=== PATIENT | male | born 1945 | race Caucasian/White ===

== ENCOUNTER 2018-03-05 20:33 | Inpatient (IN) | payer OTHER ==
[2018-03-05] MEDS ORDERED: NA CHLORIDE 0.9% 1,000 ML ONE (21:47)
[2018-03-05 22:05] LABS: Absolute Lymphocytes (CBC) 1.3 K/uL (0.7-4.9); Absolute Monocytes 0.7 K/uL (0.1-1.3); Absolute Neutrophil 4.8 K/uL (1.8-8.0); Basophils % 0.4 % (0-1.3); Eosinophils % 3.8 % (0-4.4); Hematocrit 28.8 % (39.6-49.0); Lymphocytes % 17.8 % (15.3-44.8); MCH 34.2 pg (27.0-35.0); MCV 96.5 fL (80-100); MPV 7.2 fL (7.6-11.3); Monocytes % 10.1 % (3.3-12.3); RBC Red Blood Cell Count 2.98 M/uL (4.33-5.43)
[2018-03-05 22:27] LABS: ALT/SGPT 25 U/L (12-78); AST/SGOT 16 U/L (15-37); Albumin 3.4 g/dL (3.4-5.0); Alkaline Phosphatase 78 U/L (45-117); BUN Blood Urea Nitrogen 49 mg/dL (7-18); Bicarbonate 25 mmol/L (21-32); Bilirubin Direct < 0.1 mg/dL (0-0.2); Bilirubin Total 0.3 mg/dL (0.2-1.0); Glucose Level 141 mg/dL (74-106); Lipase 167 U/L (73-393); NT PRO-BNP 445 pg/mL (<125); Potassium 4.1 mmol/L (3.5-5.1); Protein, Total 7.5 g/dL (6.4-8.2); Sodium Level 135 mmol/L (136-145)
[2018-03-05 22:29] LABS: Urine Blood NEGATIVE (NEG); Urine Glucose NEGATIVE (NEG); Urine Protein TRACE (NEG); Urine pH 5.5 (5.0-7.0)
[2018-03-05 23:00] LABS: Urine Bacteria <20 /HPF (NONE SEEN); Urine Culture Reflex Order NOT NEEDED; Urine RBC NONE SEEN /HPF (NONE SEEN)
--- NOTE | 2018-03-06 00:19 | ER ---
Nurse's Notes [facility] Name: Juan Carter Age: 72 yrs Sex: Male : 1945 Arrival Date: 03/05/2018 Time: 20:35 Bed 8 Private MD: Parish Bowling C Diagnosis: Diverticulitis of intestine, part unspecified, without perforation or abscess without bleeding Presentation: 03/05 20:41 Presenting complaint: Patient states: left lower abd pain. 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 ak1 pt stated he has had diverticulitis before and believes this is a "flare up". Transition of care: patient was not received from another setting of care. Onset of symptoms is unknown. Risk Assessment: Do you want to hurt yourself or someone else? Patient reports no desire to harm self or others. Initial Sepsis Screen: Does the patient meet any 2 criteria? No. Patient's initial sepsis screen is negative. Does the patient have a suspected source of infection? No. Patient's initial sepsis screen is negative. Care prior to arrival: None. 20:41 Method Of Arrival: Ambulatory ak1 20:41 Acuity: MARINA 3 ak1 Historical: - Allergies: 20:42 SHELLFISH; ak1 - PMHx: 03/06 01:16 Diverticulitis; lp1 01:22 Hypertension; Prostate Cancer; lp1 - PSHx: 01:22 R kidney removal; Colon resection; lp1 - Immunization history:: Adult Immunizations unknown. - Social history:: Smoking status: Patient/guardian denies using tobacco. - Ebola Screening: : No symptoms or risks identified at this time. Screenin/26 20:44 Abuse screen: Denies threats or abuse. Denies injuries from another. Nutritional ak1 screening: No deficits noted. Tuberculosis screening: No symptoms or risk factors identified. Fall Risk None identified. Assessment: 20:45 General: Appears in no apparent distress. Behavior is calm, cooperative, appropriate lp1 for age. Pain: Denies pain. Complains of pain in left lower quadrant. Neuro: Level of Consciousness is awake, alert, obeys commands, Oriented to person, place, time, situation. Cardiovascular: Patient's skin is warm and dry. Respiratory: Respiratory effort is even, unlabored, Breath sounds are clear bilaterally. GI: Abdomen is non-distended, Bowel sounds present X 4 quads. Abd is soft and non tender X 4 quads. : No signs and/or symptoms were reported regarding the genitourinary system. EENT: No signs and/or symptoms were reported regarding the EENT system. Derm: Skin is pink, warm \\T\\ dry. Musculoskeletal: Circulation, motion, and sensation intact. 21:01 General: Appears in no apparent distress. comfortable, Behavior is calm, cooperative, ao appropriate for age. Pain: Complains of pain in abdomen. Neuro: Level of Consciousness is awake, alert, obeys commands, Oriented to person, place, time, situation, Appropriate for age Moves all extremities. Speech is normal, Facial symmetry appears normal. Cardiovascular: Capillary refill < 3 seconds Patient's skin is warm and dry. Respiratory: Airway is patent Respiratory effort is even, unlabored, Respiratory pattern is regular, symmetrical. GI: Abdomen is obese, Bowel sounds present X 4 quads. Abd is soft and non tender X 4 quads. : No signs and/or symptoms were reported regarding the genitourinary system. EENT: No signs and/or symptoms were reported regarding the EENT system. Derm: Skin is intact, Skin is pink, warm \\T\\ dry. Musculoskeletal: Range of motion:. 21:45 Reassessment: Patient appears in no apparent distress at this time. Patient and/or lp1 family updated on plan of care and expected duration. Pain level reassessed. Patient is alert, oriented x 3, equal unlabored respirations, skin warm/dry/pink. 22:45 Reassessment: Patient is alert, oriented x 3, equal unlabored respirations, skin lp1 warm/dry/pink. Patient denies pain at this time. 03/06 00:00 Reassessment: Patient appears in no apparent distress at this time. No changes from lp1 previously documented assessment. 01:01 Reassessment: Patient appears in no apparent distress at this time. Patient is alert, lp1 oriented x 3, equal unlabored respirations, skin warm/dry/pink. Patient aware of pending admission Patient denies pain at this time. 01:01 Reassessment: Attempted to call report at this time, nurse will call back. 1 Vital Signs: 03/05 20:42 BP 135 / 72; Pulse 71; Resp 18; Temp 98.1; Pulse Ox 98% on R/A; Weight 104.33 kg (R); ak1 Height 6 ft. 2 in. (187.96 cm) (R); Pain 4/10; 21:30 BP 144 / 65; Pulse 61; Resp 18; Pulse Ox 97% on R/A; lp1 22:30 BP 157 / 69; Pulse 59; Resp 18; Pulse Ox 98% on R/A; lp1 23:30 BP 158 / 80; Pulse 55; Resp 18; Pulse Ox 98% on R/A; lp1 03/06 00:30 BP 137 / 66; Pulse 58; Resp 18; Temp 99.1(O); Pulse Ox 100% on R/A; Pain 0/10; lp1 01:22 BP 140 / 64; Pulse 59; Resp 18; Pulse Ox 100% on R/A; lp1 03/05 20:42 Body Mass Index 29.53 (104.33 kg, 187.96 cm) ak1 ED Course: 03/05 20:35 Patient arrived in ED. es 20:36 Parish Bowling MD is Private Physician. es 20:42 Triage completed. ak1 20:42 Arm band placed on Patient placed in an exam room, on a stretcher, Patient notified of ak1 wait time. 20:44 Patient has correct armband on for positive identification. ak1 20:46 Phillip Hurtado RN is Primary Nurse. ao 20:47 Rosalia Negrete FNP-C is PHCP. snw 20:48 Walt Watt MD is Attending Physician. snw 21:34 Oral contrast reported to be complete. nj 21:53 Ibis Melo, SEGUN is Primary Nurse. lp1 21:56 Inserted saline lock: 20 gauge in right antecubital area, using aseptic technique. lp1 Blood collected. By Phillip Hurtado RN. 03/06 00:18 Parish Bowling MD is Hospitalizing Provider. snw 00:23 CT completed. Patient tolerated procedure well. Patient moved to CT via stretcher. Patient moved back from CT. 00:58 No provider procedures requiring assistance completed. Patient admitted, IV remains in lp1 place. Administered Medications: 03/05 21:56 Drug: NS 0.9% 1000 ml Route: IV; Rate: 75 ml/hr; Site: right antecubital; lp1 03/06 01:01 Follow up: IV Status: Infusion continued upon admission lp1 00:53 Drug: Cipro 200 mg Volume: 100 ml; Route: IVPB; Infused Over: 60 mins; Site: right lp1 antecubital; 01:02 Follow up: IV Status: Infusion continued upon admission lp1 Outcome: 00:18 Decision to Hospitalize by Provider. snw 00:59 Condition: stable lp1 00:59 Instructed on the need for admit. 01:23 Admitted to Tele via wheelchair, room 429, with chart, Report called to SEGUN Casey lp1 01:26 Patient left the ED. lp1 Signatures: Rosalia Negrete, WATER QUALITY MANAGER-C WATER QUALITY MANAGER-Csnw Sirisha Arroyo Ervin eh Pena, Laura, RN RN lp1 Linn Fong RN RN ak1 Phillip Hurtado, RN RN [place] Corrections: (The following items were deleted from the chart) 01:22 01:16 PMHx: Only one kidney; lp1 lp1
--- NOTE | 2018-03-06 00:19 | EDPHYS ---
Physician Documentation [facility] Name: Juan Carter Age: 72 yrs Sex: Male : 1945 Arrival Date: 03/05/2018 Time: 20:35 Bed 8 Private MD: Parish Bowling C ED Physician Walt Watt HPI: 03/05 23:22 This 72 yrs old Male presents to ER via Ambulatory with complaints of snw Abdominal Pain, Fever. 23:22 The patient presents with abdominal pain in the left lower quadrant. Onset: The snw symptoms/episode began/occurred gradually, 3 day(s) ago, and became worse and became persistent. The symptoms do not radiate. Associated signs and symptoms: Pertinent positives: fever, Pertinent negatives: blood in stools, hematuria, vomiting blood. The symptoms are described as crampy. Modifying factors: The symptoms are alleviated by bowel movements. Severity of pain: At its worst the pain was moderate. The patient has experienced similar episodes in the past. The patient has not recently seen a physician. 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 Pt then had prostate cancer and was treated with radiation. Pt had a segment of colon resected at age 50, second to diverticulitis. Pt saw urology and was rx'd meloxicam and Cipro three weeks ago. Pt states after taking the meloxicam he began swelling in bilateral legs/feet. Historical: - Allergies: 20:42 SHELLFISH; ak1 - PMHx: 03/06 01:16 Diverticulitis; lp1 01:22 Hypertension; Prostate Cancer; lp1 - PSHx: 01:22 R kidney removal; Colon resection; lp1 - Immunization history:: Adult Immunizations unknown. - Social history:: Smoking status: Patient/guardian denies using tobacco. - Ebola Screening: : No symptoms or risks identified at this time. ROS: 03/05 23:17 Eyes: Negative for injury, pain, redness, and discharge, ENT: Negative for injury, snw pain, and discharge, Neck: Negative for injury, pain, and swelling, Cardiovascular: Negative for chest pain, palpitations, and edema, Respiratory: Negative for shortness of breath, cough, wheezing, and pleuritic chest pain, Abdomen/GI: Negative for nausea, vomiting, diarrhea, and constipation, + left lower quad abdominal tenderness. Pt states it was initially crampy in nature. Pt massages the area and then is able to have a bm and the pain subsides a little for a while Back: Negative for injury and pain, : Negative for injury, bleeding, discharge, and swelling, MS/Extremity: Negative for injury and deformity, Skin: Negative for injury, rash, and discoloration, Neuro: Negative for headache, weakness, numbness, tingling, and seizure. Constitutional: Positive for fever, to 100.9. Exam: 23:17 Head/Face: Normocephalic, atraumatic. Eyes: Pupils equal round and reactive to light, snw extra-ocular motions intact. Lids and lashes normal. Conjunctiva and sclera are non-icteric and not injected. Cornea within normal limits. Periorbital areas with no swelling, redness, or edema. ENT: Nares patent. No nasal discharge, no septal abnormalities noted. Tympanic membranes are normal and external auditory canals are clear. Oropharynx with no redness, swelling, or masses, exudates, or evidence of obstruction, uvula midline. Mucous membranes moist. Neck: Trachea midline, no thyromegaly or masses palpated, and no cervical lymphadenopathy. Supple, full range of motion without nuchal rigidity, or vertebral point tenderness. No Meningismus. Chest/axilla: Normal chest wall appearance and motion. Nontender with no deformity. No lesions are appreciated. Cardiovascular: Regular rate and rhythm with a normal S1 and S2. No gallops, murmurs, or rubs. Normal PMI, no JVD. No pulse deficits. Respiratory: Lungs have equal breath sounds bilaterally, clear to auscultation and percussion. No rales, rhonchi or wheezes noted. No increased work of breathing, no retractions or nasal flaring. 23:17 Back: No spinal tenderness. No costovertebral tenderness. Full range of motion. Skin: Warm, dry with normal turgor. Normal color with no rashes, no lesions, and no evidence of cellulitis. MS/ Extremity: Pulses equal, no cyanosis. Neurovascular intact. Full, normal range of motion. Neuro: Awake and alert, GCS 15, oriented to person, place, time, and situation. Cranial nerves II-XII grossly intact. Motor strength 5/5 in all extremities. Sensory grossly intact. Cerebellar exam normal. Normal gait. 23:17 Constitutional: The patient appears alert, awake, uncomfortable. 23:17 Abdomen/GI: Inspection: scar(s), are noted in the epigastric area and umbilical area, Bowel sounds: diminished, Palpation: mild abdominal tenderness, moderate abdominal tenderness, in the left lower quadrant, mass, is not appreciated, rebound tenderness, is not appreciated. Vital Signs: 20:42 BP 135 / 72; Pulse 71; Resp 18; Temp 98.1; Pulse Ox 98% on R/A; Weight 104.33 kg (R); ak1 Height 6 ft. 2 in. (187.96 cm) (R); Pain 4/10; 21:30 BP 144 / 65; Pulse 61; Resp 18; Pulse Ox 97% on R/A; lp1 22:30 BP 157 / 69; Pulse 59; Resp 18; Pulse Ox 98% on R/A; lp1 23:30 BP 158 / 80; Pulse 55; Resp 18; Pulse Ox 98% on R/A; lp1 03/06 00:30 BP 137 / 66; Pulse 58; Resp 18; Temp 99.1(O); Pulse Ox 100% on R/A; Pain 0/10; lp1 01:22 BP 140 / 64; Pulse 59; Resp 18; Pulse Ox 100% on R/A; lp1 03/05 20:42 Body Mass Index 29.53 (104.33 kg, 187.96 cm) ak1 MDM: 03/05 21:08 Patient medically screened. snw 03/06 00:18 Data reviewed: vital signs, nurses notes. Data interpreted: Pulse oximetry: on room air snw is 98 %. Interpretation: normal. Counseling: I had a detailed discussion with the patient and/or guardian regarding: the historical points, exam findings, and any diagnostic results supporting the discharge/admit diagnosis, the presence of at least one elevated blood pressure reading (>120/80) during this emergency department visit, lab results, radiology results, the need for outpatient follow up, to return to the emergency department if symptoms worsen or persist or if there are any questions or concerns that arise at home. 03/05 21:25 Order name: Basic Metabolic Panel; Complete Time: 22:30 snw 03/05 21:25 Order name: CBC with Diff; Complete Time: 22:08 snw 03/05 21:25 Order name: Hepatic Function; Complete Time: 22:30 snw 03/05 21:25 Order name: Lipase; Complete Time: 22:30 snw 03/05 21:25 Order name: Urine Microscopic Only; Complete Time: 23:00 snw 03/05 21:25 Order name: Blood Culture Adult (2) snw 03/05 21:25 Order name: IV Saline Lock; Complete Time: 21:56 snw 03/05 21:25 Order name: Labs collected and sent; Complete Time: 21:56 snw 03/05 21:25 Order name: Urine Dipstick-Ancillary (obtain specimen); Complete Time: 22:05 snw 03/05 21:25 Order name: BNP; Complete Time: 22:30 snw 03/05 21:25 Order name: CT Abd/Pelvis - Without Cont snw 03/05 22:06 Order name: Urine Dipstick--Ancillary (enter results); Complete Time: 22:30 ms 03/05 21:26 Order name: NPO; Complete Time: 21:43 snw Administered Medications: 03/05 21:56 Drug: NS 0.9% 1000 ml Route: IV; Rate: 75 ml/hr; Site: right antecubital; lp1 03/06 01:01 Follow up: IV Status: Infusion continued upon admission lp1 00:53 Drug: Cipro 200 mg Volume: 100 ml; Route: IVPB; Infused Over: 60 mins; Site: right lp1 antecubital; 01:02 Follow up: IV Status: Infusion continued upon admission lp1 Disposition: 06:48 Co-signature as Attending Physician, Walt Watt MD. rn Disposition: 03/06/18 00:18 Hospitalization ordered by Parish Bowling for Inpatient Admission. Preliminary diagnosis is Diverticulitis of intestine, part unspecified, without perforation or abscess without bleeding. - Bed requested for Telemetry/MedSurg (Inpatient). - Status is Inpatient Admission. lp1 - Condition is Stable. - Problem is an acute exacerbation. - Symptoms are unchanged. UTI on Admission? No Signatures: Dispatcher [employer] EDMS Rosalia Negrete, CONVEYOR SYSTEM DISPATCHER-C CONVEYOR SYSTEM DISPATCHER-Csnw Estephanie Pisano, RN Walt Jasmine MD MD rn Pena, Laura, RN RN lp1 Krenek, Linn, RN RN ak1 Corrections: (The following items were deleted from the chart) 00:29 00:18 Hospitalization Ordered by A Tawnya URBINA for Inpatient Admission. Preliminary bb diagnosis is Diverticulitis of intestine, part unspecified, without perforation or abscess without bleeding. Bed requested for Telemetry/MedSurg (Inpatient). Status is Inpatient Admission. Condition is Stable. Problem is an acute exacerbation. Symptoms are unchanged. UTI on Admission? No. snw 01: 01:16 PMHx: Only one kidney; lp1 lp1 01:26 00:29 03/06/2018 00:18 Hospitalization Ordered by A Tawnya URBINA for Inpatient Admission. lp1 Preliminary diagnosis is Diverticulitis of intestine, part unspecified, without perforation or abscess without bleeding. Bed requested for Telemetry/MedSurg (Inpatient). Status is Inpatient Admission. Condition is Stable. Problem is an acute exacerbation. Symptoms are unchanged. UTI on Admission? No. bb
[2018-03-06] MEDS ORDERED: Ciprofloxacin 200mg IV 200 MG/100 ML IV.SOLN. IV ONE (00:52)
[2018-03-06] MEDS ORDERED: ACETAMINOPHEN 500 MG TAB PO PRN (01:51)
[2018-03-06] MEDS: METRONIDAZOLE 250mg IVPB 250 MG/50 ML BAG IV SCH ×3 (01:51→16:05)
[2018-03-06] MEDS ORDERED: PROMETHAZINE 25 MG/ML VIAL IV PRN (01:51)
[2018-03-06] MEDS ORDERED: Morphine 2 MG/2 ML SYR IV PRN (01:51)
[2018-03-06] MEDS: NA CHLORIDE 0.9% 1,000 ML IV SCH ×2 (01:51→11:29)
[2018-03-06 05:37] LABS: Absolute Lymphocytes (CBC) 1.5 K/uL (0.7-4.9); Absolute Monocytes 0.6 K/uL (0.1-1.3); Absolute Neutrophil 3.5 K/uL (1.8-8.0); Basophils % 0.5 % (0-1.3); Eosinophils % 5.8 % (0-4.4); Hematocrit 26.3 % (39.6-49.0); Lymphocytes % 24.4 % (15.3-44.8); MCH 32.6 pg (27.0-35.0); MCV 96.8 fL (80-100); Monocytes % 10.7 % (3.3-12.3); RBC Red Blood Cell Count 2.72 M/uL (4.33-5.43)
[2018-03-06 06:03] LABS: Albumin 2.9 g/dL (3.4-5.0); Bilirubin Direct 0.1 mg/dL (0-0.2); Bilirubin Total 0.4 mg/dL (0.2-1.0); Potassium 4.3 mmol/L (3.5-5.1); Protein, Total 6.6 g/dL (6.4-8.2)
[2018-03-06] MEDS ORDERED: MORPHINE 2 MG/ML SYR IV PRN (07:22)
[2018-03-06] MEDS ORDERED: DOXAZOSIN 2 MG TAB ONE (07:58)
[2018-03-06] MEDS ORDERED: PNEUMOCOCCAL VACCINE 0.5 ML IMVAC ONE (08:00)
--- NOTE | 2018-03-06 08:12 | RAD REPORT ---
EXAM DESCRIPTION: CT - Abdomen Pelvis Wo Contrast - 03/06/2018 6:05 am CLINICAL HISTORY: Abdominal pain left lower quadrant pain. Surgery 6+ months however section. Renal cell carcinoma COMPARISON: 2009 TECHNIQUE: Computed axial tomography of the abdomen and pelvis was obtained. IV was not requested. O ral contrast was given. Coronal reconstructions performed. A preliminary report was generated by [employer] and reviewed prior to this dictation All CT scans are performed using dose optimization technique as appropriate and may include automated exposure control or mA/KV adjustment according to patient size. FINDINGS: The evaluation of solid organs and vessels is limited secondary to the lack of contrast a dministration. Liver has a mildly diminished attenuation consistent with fatty infiltration Spleen, pancreas, and adrenals appear grossly normal. Right nephrectomy has been performed. Several l ow-density masses within the left kidney are without significant change probably representing cysts. Bilateral inguinal hernias contain fat. Internal radiation beams surround the prostate. Diverticula stem from the colon. Mild to moderate stranding is present adjacent to the distal descend ing colon. An abscess is not seen. Free air is not noted. Spondylosis involves lumbar spine resulting in spinal stenosis. IMPRESSION: Mild to moderate diverticulitis involving the distal descending colon
[2018-03-06] MEDS: DOXAZOSIN 4 MG TAB PO SCH (08:21)
[2018-03-06] MEDS: HYDRALAZINE HCL 10 MG TABLET PO SCH (08:22)
[2018-03-06] MEDS: CARVEDILOL 6.25 MG TAB PO SCH (08:22)
[2018-03-06] MEDS: HEPARIN 5000 UNIT/ML 1 ML VIAL SQ SCH ×2 (08:23→20:26)
[2018-03-06] MEDS: Ciprofloxacin 200mg IV 200 MG/100 ML IV.SOLN. IV SCH (12:02)
[2018-03-06] MEDS ORDERED: ALLOPURINOL 100 MG TAB PO SCH (21:00)
[2018-03-06] MEDS ORDERED: VITAMIN D 5,000 UNIT CAP PO SCH (21:00)
[2018-03-06] MEDS ORDERED: ASPIRIN EC 81 MG TAB PO SCH (21:00)
[2018-03-07] MEDS: NA CHLORIDE 0.9% 1,000 ML IV SCH ×2 (00:04→07:51)
[2018-03-07] MEDS: METRONIDAZOLE 250mg IVPB 250 MG/50 ML BAG IV SCH ×2 (00:05→09:00)
[2018-03-07] MEDS: Ciprofloxacin 200mg IV 200 MG/100 ML IV.SOLN. IV SCH (00:08)
--- NOTE | 2018-03-07 01:50 | HP ---
Date of Admission: 03/06/2018 Chief Complaint: Abdominal pain and fever. History Of Present Illness: This is a 72-year-old male patient with history of diverticulosis and prior history of diverticulitis several years ago with multiple other comorbidities came into emergency room yesterday late evening with abdominal pain that started 3-4 days ago and has progressively gotten worse and started to have fever. Pain gets worse with bending, walking, etc. Denies any constipation, diarrhea. No bleeding. No nausea. No vomiting. No relieving factor. He contacted me late yesterday evening with this symptom. He was advised to come to the emergency room. Details were discussed with ER physician and evaluation was done in ER and the patient was admitted to the hospital with acute diverticulitis. This morning when I saw him, he had no new complaints except as mentioned above. Allergies: TO SHELLFISH. Medications: List reviewed. Review of Systems: GI: As mentioned above. Constitutional: As mentioned above. All other systems reviewed and negative. Family History: Not pertinent. Social History: Negative for smoking or alcohol use. Past Surgical History: Significant for surgery for kidney cancer. Past Medical History: Significant for hypertension; hyperlipidemia; chronic kidney disease, stage 4; kidney cancer; gout; diverticulosis; prostate cancer; anemia due to chronic kidney disease; impaired fasting glucose. Physical Examination: Vital Signs: Height 6 feet. Weight 234 pounds. Temperature 97.6, pulse 55, respiratory rate 17, blood pressure 131/62, oxygen saturation 94%. General: Awake, alert, oriented, not in distress. HEENT: Head atraumatic, normocephalic. Conjunctivae nonerythematous. Sclerae white. Mouth, no thrush or edema noted. Ears/Nose, no mass, lesion, discharge noted. Neck: Supple. No JVD, lymph nodes, bruit, thyromegaly noted. Lungs: Bilateral good equal air entry. Clear to auscultation. No rhonchi. No rales. Heart: Normal heart sounds, no murmur or gallop. Abdomen: Soft. No distention, guarding, or rigidity. No rebound tenderness. No hepatosplenomegaly. No bruit. Bowel sounds normoactive. Presence of moderate tenderness in left lower quadrant. Extremities: No leg edema. No calf tenderness. Skin: No rash, ulcer, cellulitis. Lymphatics: No lymph node enlargement in neck, supraclavicular, infraclavicular region. Neuro: No focal neurological deficit. Chest: Unremarkable. External Genitalia: Deferred. Rectal: Deferred. Laboratory Data: Yesterday white count 7.1, hemoglobin 10.2, platelets 169. This morning, white count 6, hemoglobin 8.8, platelets 165. Sodium yesterday 135, potassium 4.1, chloride 103, bicarb 25, BUN 49, creatinine 2.80, glucose 141. Liver function tests unremarkable. Lipase 167. This morning, sodium 138 , potassium 4.3, chloride 104, bicarb 25, BUN 47, creatinine 2.40, glucose 105. Liver function tests unremarkable. Lipase 120. Urinalysis unremarkable, except trace protein. CAT scan of abdomen and pelvis without contrast shows [id number] diverticulitis involving distal descending colon. An abscess is not seen. No free air under diaphragm. Impression: 1. Acute diverticulitis without obstruction, without perforation. 2. Hypertension. 3. Kidney cancer. 4. Chronic kidney disease, stage 4. 5. Anemia due to chronic kidney disease. 6. Gout. Plan: We will admit the patient to hospital for further evaluation and management of this problem. The patient is appropriate for inpatient and is expected to spend 2 midnights in the hospital. We will go ahead and start him on clear liquid diet today. DVT prophylaxis will be given using heparin. Home medications will be continued per order. We will continue IV fluid, IV antibiotics per order. I will see him tomorrow for followup. The patient says that he has appointment to get repeat colonoscopy in May of this year with Dr. Ryan and I have advised him to keep that appointment. I will see him tomorrow for followup. ALAINA/ADARSH Voice ID: [id number] MTDAnant
[2018-03-07] MEDS: DOXAZOSIN 4 MG TAB PO SCH (09:00)
[2018-03-07] MEDS: CARVEDILOL 6.25 MG TAB PO SCH (09:00)
[2018-03-07] MEDS: HEPARIN 5000 UNIT/ML 1 ML VIAL SQ SCH (09:00)
[2018-03-07] MEDS: HYDRALAZINE HCL 10 MG TABLET PO SCH (09:26)
--- NOTE | 2018-03-08 02:09 | DS ---
Date of Discharge: 03/07/2018 Disposition: Discharged to go home. Physical Examination: HEENT: Unremarkable. Lungs: Clear to auscultation. Heart: Sounds normal. Abdomen: Soft, bowel sounds normal. No guarding, rigidity, tenderness, or distention. Extremities: No leg edema. Laboratory Data: Labs done during this hospitalization; white count upon admission 7.1, hemoglobin 10.2, platelets 169. Yesterday, white count 6, hemoglobin 8.8, platelets 165. Upon admission, sodium 135, potassium 4.1, chloride 103, bicarb 25, BUN 49, creatinine 2.80, glucose 141, lipase 167. Yesterday BUN 47, creatinine 2.40. Hospital Course: A 72-year-old male patient, admitted to the hospital with abdominal pain, and fever. Please see dictated H and P for more information. The patient came into emergency room with 3-4 days history of abdominal pain and fever. Abdominal pain was in the left lower quadrant and over period of time it got worse and then associated with fever, so the patient came into the ER. After he was evaluated in the ER, he was admitted to the hospital with acute diverticulitis. There was no evidence of any obstruction or perforation. The patient was admitted to the hospital. He was given IV fluid, IV antibiotics and yesterday he was started on clear liquid diet. As of this morning, we started him on soft diet. He tolerated a clear liquid diet very well, started ambulating well without any problem, and he has informed me that he actually has colonoscopy scheduled for May of this year with Dr. Ryan and I have advised him to keep that appointment. The patient's other medical problems remained stable and he was discharged to go home in stable condition with following discharge medications and instructions. 1. Continue all prior home medications. 2. Cipro 250 mg p.o. twice a day for 10 days and metronidazole 500 mg p.o. 3 times a day for 10 days. 3. Follow up at my office in 2 weeks. Final Diagnoses: 1. Acute diverticulitis without any obstruction or perforation. 2. Chronic kidney disease, stage 4. 3. Anemia due to chronic kidney disease. 4. Hypertension. 5. Gout. 6. Kidney cancer. 7. Hyperlipidemia. 8. Impaired fasting glucose. 9. Prostate cancer. ALAINA/MODL Voice ID: [id number] Report ID: [id number] MTDD
== END 2018-03-07 09:47 | disposition home or self-care (01) | DRG 392 ==
LOC: ER 20:33 → ERHOLD 22:34 → 4TH 03-06 01:20
PROVIDERS: ADMIT Internal Medicine; ATTEND Internal Medicine
DX: K57.92 Diverticulitis of intestine, part unspecified, without perforation or abscess without bleeding (principal); N18.4 Chronic kidney disease, stage 4 (severe); I12.9 Hypertensive chronic kidney disease with stage 1 through stage 4 chronic kidney disease, or unspecified chronic kidney disease; D63.1 Anemia in chronic kidney disease; M1A.9XX0 Chronic gout, unspecified, without tophus (tophi); E78.5 Hyperlipidemia, unspecified; Z91.013 Allergy to seafood; Z85.46 Personal history of malignant neoplasm of prostate; Z85.528 Personal history of other malignant neoplasm of kidney
CPT/HCPCS: 36415; 74176; 80048; 80076; 81003; 81015; 83690; 83880; 85025; 87040; 96361; 96374; 99285; J0744; J1644; J2270; J7030

== ENCOUNTER 2025-07-03 12:38 | Observation (INO) | payer OTHER ==
[2025-07-03 13:41] LABS: Absolute Lymphocytes (CBC) 1.1 K/uL (0.7-4.9); Hematocrit 25.8 % (39.6-49.0); Hemoglobin 8.8 g/dL (13.6-17.9); MCH 34.5 pg (27.0-35.0); MCHC 34.1 g/dL (32.0-36.0); MCV 101.2 fL (80-100); MPV 7.0 fL (7.6-11.3); Nucleated RBC Absolute Count 0.0 (0-0); Nucleated Red Blood Cells % 0.1 % (0-0); RBC Red Blood Cell Count 2.55 M/uL (4.33-5.43); White Blood Count 4.30 thou/uL (4.3-10.9)
--- NOTE | 2025-07-03 13:53 | RAD REPORT ---
EXAM: Chest Single View HISTORY: 79 years Male CHEST PAIN COMPARISON: No prior exams FINDINGS: LUNGS/PLEURA: The lungs are clear. No pleural effusions or pneumothorax. No pulmonary edema. CARDIAC/MEDIASTINUM: The cardiac silhouette is within normal limits. UPPER ABDOMEN: No significant abnormality. BONES: No acute abnormality. LINES/TUBES/OTHER: N/A IMPRESSION: No evidence of acute cardiopulmonary disease.
[2025-07-03 14:00] LABS: ALT/SGPT 21 U/L (16-61); AST/SGOT 11 U/L (15-37); Albumin 3.3 g/dL (3.4-5.0); Albumin/Globulin Ratio 0.9 (1.1-1.8); Alkaline Phosphatase 79 U/L (45-117); Anion Gap 10.7 mEq/L (5.0-15.0); BUN Blood Urea Nitrogen 47 mg/dL (7-18); Globulin 3.5 g/dL (2.3-3.5); Glucose Level 101 mg/dL (74-106); Magnesium 2.4 mg/dL (1.6-2.4); NT PRO-BNP 1319 pg/mL (<450); Potassium 4.7 mEq/L (3.5-5.1); Troponin High Sensitivity 12.7 pg/mL (<58.9)
[2025-07-03 14:02] LABS: Bilirubin Indirect, Calculated 0.0 mg/dL (0.2-0.8)
[2025-07-03 14:44] LABS: PT Prothrombin Time 12.4 SECONDS (10-13.0); Protime INR 1.1
[2025-07-03] MEDS ORDERED: FUROSEMIDE 40 MG/4 ML VIAL ONE (15:40)
--- NOTE | 2025-07-03 15:44 | ER ---
Nurse's Notes [facility] Name: Juan Carter Age: 79 yrs Sex: Male : 1945 Arrival Date: 07/03/2025 Time: 12:38 Bed 14 Private MD: Diagnosis: New onset CHF, dyspnea, renal insufficiency Presentation: 07/03 12:47 Chief complaint: Patient states: for the past 2 weeks patient has had episodes of chest me1 heaviness that radiates to left arm, 5/10, with SOB. 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 Reports intermittent lightheadedness. Feels anxious. HX of kidney cancer with a nephrectomy and his kidney function has been poor lately. Coronavirus screen: At this time, the client does not indicate any symptoms associated with coronavirus-19. Ebola Screen: No symptoms or risks identified at this time. Initial Sepsis Screen: Does the patient meet any 2 criteria? No. Patient's initial sepsis screen is negative. Does the patient have a suspected source of infection? No. Patient's initial sepsis screen is negative. Risk Assessment: Do you want to hurt yourself or someone else? Patient reports no desire to harm self or others. Onset of symptoms is unknown. 12:47 Method Of Arrival: Ambulatory me1 12:47 Acuity: MARINA 2 me1 Historical: - Allergies: 12:52 SHELLFISH; me1 - PMHx: 12:52 Diverticulitis; Hypertension; Prostate Cancer; kidney cancer (Unknown); me1 - PSHx: 12:52 nephrectomy (Unknown); me1 - Immunization history:: Adult Immunizations up to date. - Infectious Disease History:: Denies. - Social history:: Smoking status: Patient denies any tobacco usage or history of. Screenin:45 [place] ED Fall Risk Assessment (Adult) History of falling in the last 3 months, ar8 including since admission No falls in past 3 months (0 pts) Confusion or Disorientation No (0 pts) Intoxicated or Sedated No (0 pts) Impaired Gait No (0 pts) Mobility Assist Device Used No (0 pt) Altered Elimination No (0 pt) Score/Fall Risk Level 0 - 2 = Low Risk Oriented to surroundings, Maintained a safe environment. Abuse screen: Denies threats or abuse. Nutritional screening: No deficits noted. Tuberculosis screening: No symptoms or risk factors identified. Assessment: 14:40 Reassessment: Patient placed in ED room at this time. ar8 14:57 General: Appears in no apparent distress. Behavior is calm, cooperative. Pain: Denies ar8 pain. Neuro: Level of Consciousness is awake, alert, obeys commands, Oriented to person, place, time, situation. Cardiovascular: Denies chest pain, CP has resolved at this time Patient's skin is warm and dry. Rhythm is sinus bradycardia. Respiratory: Airway is patent is compromised Respiratory effort is even, unlabored, Respiratory pattern is regular, symmetrical. GI: No signs and/or symptoms were reported involving the gastrointestinal system. : No signs and/or symptoms were reported regarding the genitourinary system. EENT: No signs and/or symptoms were reported regarding the EENT system. Derm: No signs and/or symptoms reported regarding the dermatologic system. 17:33 Reassessment: Patient and/or family updated on plan of care and expected duration. Pain ar8 level reassessed. Patient is alert, oriented x 3, equal unlabored respirations, skin warm/dry/pink. Patient states feeling better. Patient states symptoms have improved. Vital Signs: 12:47 BP 154 / 62; Pulse 57; Resp 20; Temp 98.2; Pulse Ox 99% ; Weight 106.59 kg; Height 6 me1 ft. 1 in. ; Pain 5/10; 14:45 BP 148 / 61; Pulse 57; Resp 20; Pulse Ox 98% on R/A; Pain 0/10; ar8 15:45 BP 137 / 56; Pulse 59; Resp 20; Pulse Ox 99% on R/A; Pain 0/10; ar8 16:45 BP 147 / 62; Pulse 52; Resp 17; Pulse Ox 97% on R/A; ar8 17:30 BP 154 / 56; Pulse 55; Resp 18; Pulse Ox 100% on R/A; Pain 0/10; ar8 18:00 BP 144 / 58; Pulse 55; Resp 16; Pulse Ox 97% on R/A; Pain 0/10; ar8 12:47 Body Mass Index 31.00 (106.59 kg, 185.42 cm) me1 12:47 Pain Scale: Adult me1 14:45 Pain Scale: Adult ar8 15:45 Pain Scale: Adult ar8 17:30 Pain Scale: Adult ar8 18:00 Pain Scale: Adult ar8 ED Course: 12:41 Patient arrived in ED. im 12:52 Triage completed. me1 12:52 Arm band placed on Patient placed in waiting room. me1 13:11 Ale Mabry MD is Attending Physician. sp3 13:15 EKG done, by ED staff, reviewed by Ale Mabry MD. me1 13:28 Initial lab(s) drawn, by mill labor supervisor, sent to lab. Inserted saline lock: 20 gauge in right ts3 antecubital area, using aseptic technique. Blood collected. Flushed with 10 mL NS. 13:50 XRAY Chest (1 view) In Process Unspecified. EDMS 14:37 Ed Pandey, RN is Primary Nurse. ar8 14:45 Bed in low position. Call light in reach. Side rails up X 1. Provided Education on: ar8 plan of care. Client placed on continuous cardiac and pulse oximetry monitoring. NIBP monitoring applied. Warm blanket given. 14:45 No provider procedures requiring assistance completed. Patient maintains SpO2 ar8 saturation greater than 95% on room air. 15:43 Parish Bowling MD is Hospitalizing Provider. sp3 18:14 Patient admitted, IV remains in place. ar8 Administered Medications: 15:50 Drug: Furosemide IVP 40 mg IVP once; give over 2 minutes Route: IVP; Site: right ar8 antecubital; 18:14 Follow up: Urine output 750 ml; Response: No adverse reaction ar8 Medication: 14:45 VIS not applicable for this client. ar8 Output: 18:14 Urine: 750ml; Total: 750ml. ar8 Outcome: 15:43 Decision to Hospitalize by Provider. sp3 18:14 Admitted to Med/surg accompanied by tech, via wheelchair, room 214, ar8 18:14 Condition: stable 18:14 Discharge instructions given to n/a 18:15 Patient left the ED. ar8 Signatures: Dispatcher [employer] EDMS Ale Mabry MD MD sp3 Alona Burnett Maria M Hendricks RN RN me1 Jeny Romero 3 Ed Pandey, RN RN ar8 Corrections: (The following items were deleted from the chart) 12:57 12:47 Chief complaint: Patient states: for the past 2 weeks patient has had episodes of me1 chest heaviness, 5/10, with SOB. 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 Reports intermittent lightheadedness. Feels anxious. HX of kidney cancer with a nephrectomy and his kidney function has been poor lately. me1 12:57 12:47 BP 154 / 62; Pulse 57bpm; Resp 20bpm; Pulse Ox 99%; Temp 98.2F; Pain 5/10, Adult; me1 me1
--- NOTE | 2025-07-03 15:44 | EDPHYS ---
Physician Documentation [facility] Name: Juan Carter Age: 79 yrs Sex: Male : 1945 Arrival Date: 07/03/2025 Time: 12:38 Bed 14 Private MD: ED Physician Ale Mabry HPI: 07/03 15:01 This 79 yrs old Male presents to ER via Ambulatory with complaints of Chest Pressure. sp3 15:40 79-year-old male with history of hypertension, prior prostate cancer, prior kidney sp3 cancer with left nephrectomy, presents sent from PCP office Dr. Bowling for progressively increasing shortness of breath, generalized weakness and renal insufficiency. He already sees Dr. 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 Patient states he feels fatigued and short of breath. He denies any fever, headache, URI symptoms, chest pain, back pain, abdominal pain, syncope, near syncope, bleeding, rash, known sick contacts, travel history, prolonged immobilization, trauma, or any other signs or symptoms on ROS at this time.. Historical: - Allergies: 12:52 SHELLFISH; me1 - PMHx: 12:52 Diverticulitis; Hypertension; Prostate Cancer; kidney cancer (Unknown); me1 - PSHx: 12:52 nephrectomy (Unknown); me1 - Immunization history:: Adult Immunizations up to date. - Infectious Disease History:: Denies. - Social history:: Smoking status: Patient denies any tobacco usage or history of. ROS: 15:41 Constitutional: Negative for fever, chills, and weight loss, Eyes: Negative for injury, sp3 pain, redness, and discharge, ENT: Negative for injury, pain, and discharge, Neck: Negative for injury, pain, and swelling, Abdomen/GI: Negative for abdominal pain, nausea, vomiting, diarrhea, and constipation, Back: Negative for injury and pain, MS/Extremity: Negative for injury and deformity, Skin: Negative for injury, rash, and discoloration, Neuro: Negative for headache, weakness, numbness, tingling, and seizure, Psych: Negative for depression, anxiety, suicide ideation, homicidal ideation, and hallucinations, Allergy/Immunology: Negative for hives, rash, and allergies, Endocrine: Negative for neck swelling, polydipsia, polyuria, polyphagia, and marked weight changes, Hematologic/Lymphatic: Negative for swollen nodes, abnormal bleeding, and unusual bruising, 15:41 All other systems are negative, Exam: 15:41 Constitutional: This is a well developed, well nourished patient who is awake, alert, sp3 and in no acute distress. Head/Face: Normocephalic, atraumatic. Eyes: Pupils equal round and reactive to light, extra-ocular motions intact. Lids and lashes normal. Conjunctiva and sclera are non-icteric and not injected. Cornea within normal limits. Periorbital areas with no swelling, redness, or edema. Neck: Trachea midline, no thyromegaly or masses palpated, and no cervical lymphadenopathy. Supple, full range of motion without nuchal rigidity, or vertebral point tenderness. No Meningismus. Chest/axilla: Normal chest wall appearance and motion. Nontender with no deformity. No lesions are appreciated. Cardiovascular: Regular rate and rhythm with a normal S1 and S2. No gallops, murmurs, or rubs. Normal PMI, no JVD. No pulse deficits. Abdomen/GI: Soft, non-tender, with normal bowel sounds. No distension or tympany. No guarding or rebound. No evidence of tenderness throughout. Back: No spinal tenderness. No costovertebral tenderness. Full range of motion. Skin: Warm, dry with normal turgor. Normal color with no rashes, no lesions, and no evidence of cellulitis. MS/ Extremity: Pulses equal, no cyanosis. Neurovascular intact. Full, normal range of motion. Neuro: Awake and alert, GCS 15, oriented to person, place, time, and situation. Cranial nerves II-XII grossly intact. Motor strength 5/5 in all extremities. Sensory grossly intact. Cerebellar exam normal. Normal gait. Psych: Awake, alert, with orientation to person, place and time. Behavior, mood, and affect are within normal limits. 15:41 Respiratory: Mild rales bilaterally bases, 15:45 ECG was reviewed by the Attending Physician. EKG demonstrates sinus bradycardia 50 bpm sp3 with first-degree AV block with AZ interval 254, QTc 414, normal axis, normal QRS, low voltage, nonspecific diffuse ST/T changes without evidence of acute ischemia. Vital Signs: 12:47 BP 154 / 62; Pulse 57; Resp 20; Temp 98.2; Pulse Ox 99% ; Weight 106.59 kg; Height 6 me1 ft. 1 in. ; Pain 5/10; 14:45 BP 148 / 61; Pulse 57; Resp 20; Pulse Ox 98% on R/A; Pain 0/10; ar8 15:45 BP 137 / 56; Pulse 59; Resp 20; Pulse Ox 99% on R/A; Pain 0/10; ar8 16:45 BP 147 / 62; Pulse 52; Resp 17; Pulse Ox 97% on R/A; ar8 17:30 BP 154 / 56; Pulse 55; Resp 18; Pulse Ox 100% on R/A; Pain 0/10; ar8 18:00 BP 144 / 58; Pulse 55; Resp 16; Pulse Ox 97% on R/A; Pain 0/10; ar8 12:47 Body Mass Index 31.00 (106.59 kg, 185.42 cm) me1 12:47 Pain Scale: Adult me1 14:45 Pain Scale: Adult ar8 15:45 Pain Scale: Adult ar8 17:30 Pain Scale: Adult ar8 18:00 Pain Scale: Adult ar8 MDM: 13:11 Medical Screening Exam initiated sp3 15:41 Data reviewed: vital signs, nurses notes, old medical records, lab test result(s), EKG, sp3 radiologic studies. ED course: 79-year-old male with new onset CHF in the setting of continued renal failure with creatinine 3.2. BNP at 1400. I have discussed the case with Dr. Bowling as well as informed to cardiology regarding the consult. Patient is stable. We will start Lasix and place patient in for admission.. 07/03 13:11 Order name: Basic Metabolic Panel; Complete Time: 14:50 sp3 07/03 13:11 Order name: CBC with Diff; Complete Time: 13:56 sp3 07/03 13:11 Order name: LFT's; Complete Time: 14:50 sp3 07/03 13:11 Order name: Magnesium; Complete Time: 14:50 sp3 07/03 13:11 Order name: NT PRO-BNP; Complete Time: 14:50 sp3 07/03 13:11 Order name: PT-INR; Complete Time: 14:50 sp3 07/03 13:11 Order name: Troponin HS; Complete Time: 14:50 sp3 07/03 15:37 Order name: Basic Metabolic Panel EDMS 07/03 15:37 Order name: CBC with Automated Diff EDMS 07/03 15:37 Order name: Magnesium EDMS 07/03 16:04 Order name: Troponin High Sensitivity EDMS 07/03 16:04 Order name: Troponin High Sensitivity EDMS 07/03 16:04 Order name: Troponin High Sensitivity EDMS 07/03 16:04 Order name: Troponin High Sensitivity EDMS 07/03 13:11 Order name: XRAY Chest (1 view); Complete Time: 13:56 sp3 07/03 16:04 Order name: EKG Electrocardiogram EDMS 07/03 16:04 Order name: EKG Electrocardiogram EDMS 07/03 16:04 Order name: EKG Electrocardiogram EDMS 07/03 16:04 Order name: EKG Electrocardiogram EDMS 07/03 13:11 Order name: Cardiac monitoring; Complete Time: 14:45 sp3 07/03 13:11 Order name: EKG - Nurse/Tech; Complete Time: 13:27 sp3 07/03 13:11 Order name: IV Saline Lock; Complete Time: 13:27 sp3 07/03 13:11 Order name: Labs collected and sent; Complete Time: 13:27 sp3 07/03 13:11 Order name: O2 Per Protocol; Complete Time: 14:45 sp3 07/03 13:11 Order name: O2 Sat Monitoring; Complete Time: 14:45 sp3 07/03 13:45 Order name: Labs - recollect needed: recollect blue top/ underfilled per Kimberlee in the eb lab; Complete Time: 14:31 Administered Medications: 15:50 Drug: Furosemide IVP 40 mg IVP once; give over 2 minutes Route: IVP; Site: right ar8 antecubital; 18:14 Follow up: Urine output 750 ml; Response: No adverse reaction ar8 Disposition Summary: 07/03/25 15:43 Hospitalization Ordered Notes: Hospitalization Status: Inpatient Admission sp3 Provider: Parish Bowling Location: Telemetry/MedSur (Inpatient) sp3 Condition: Stable sp3 Problem: new sp3 Symptoms: have worsened sp3 Bed/Room Type: Standard sp3 Room Assignment: 214(07/03/25 17:29) sp Diagnosis - New onset CHF, dyspnea, renal insufficiency sp3 Forms: - Medication Reconciliation Form sp3 - SBAR form sp3 - Leadership Thank You Letter sp3 Signatures: Dispatcher [employer] EDMS DelaneyAlbaroMaliniSue Baum Setul, MD MD sp3 Maria M Hendricks, SEGUN RN me1 Ed Pandey RN RN ar8 Corrections: (The following items were deleted from the chart) 13:12 13:12 BASIC METABOLIC PANEL+C.LAB.BRZ ordered. EDMS EDMS 13:12 13:12 CBC+H.LAB.BRZ ordered. EDMS EDMS 13:12 13:12 HEPATIC FUNCTION+C.LAB.BRZ ordered. EDMS EDMS 13:12 13:12 MAGNESIUM+C.LAB.BRZ ordered. EDMS EDMS 13:12 13:12 PROBNP+C.LAB.BRZ ordered. EDMS EDMS 13:12 13:12 PROTIME (+INR)+COAG.LAB.BRZ ordered. EDMS EDMS 13:12 13:12 Troponin High Sensitivity+C.LAB.BRZ ordered. EDMS EDMS 13:12 13:12 Chest Single View+RAD.RAD.BRZ ordered. EDMS EDMS 17:29 15:43 sp3 sp
[2025-07-03] MEDS: FUROSEMIDE 40 MG/4 ML VIAL IV SCH (20:32)
[2025-07-03] MEDS: HEPARIN 5000 UNIT/ML 1 ML VIAL SQ SCH (20:33)
[2025-07-03] MEDS: DOXAZOSIN 4 MG TAB PO SCH (20:36)
[2025-07-03] MEDS: ROSUVASTATIN 5 MG TAB PO SCH (20:36)
[2025-07-03] MEDS: SODIUM BICARB 325 MG TAB PO SCH (20:37)
[2025-07-03] MEDS: AMLODIPINE 5 MG TAB PO SCH (20:37)
[2025-07-03] MEDS: HYDRALAZINE HCL 25 MG TABLET PO SCH (20:37)
[2025-07-03] MEDS ORDERED: ALPRAZOLAM 0.25 MG TABLET PO PRN (20:50)
[2025-07-03 22:39] VITALS: BMI 30.9
[2025-07-04 05:39] LABS: Absolute Lymphocytes (CBC) 1.4 K/uL (0.7-4.9); Hematocrit 23.9 % (39.6-49.0); Hemoglobin 8.2 g/dL (13.6-17.9); MCH 34.4 pg (27.0-35.0); MCHC 34.4 g/dL (32.0-36.0); MCV 100.0 fL (80-100); MPV 7.2 fL (7.6-11.3); Nucleated RBC Absolute Count 0.0 (0-0); Nucleated Red Blood Cells % 0.1 % (0-0); RBC Red Blood Cell Count 2.39 M/uL (4.33-5.43); White Blood Count 4.20 thou/uL (4.3-10.9)
[2025-07-04 05:55] LABS: Anion Gap 14.2 mEq/L (5.0-15.0); BUN Blood Urea Nitrogen 51.0 mg/dL (7-18); Glucose Level 94.0 mg/dL (74-106); Magnesium 2.2 mg/dL (1.6-2.4); Potassium 4.2 mEq/L (3.5-5.1)
[2025-07-04 08:12] VITALS: TEMP 97.8
[2025-07-04] MEDS: AMLODIPINE 10 MG TAB PO SCH (09:00)
[2025-07-04] MEDS: HYDRALAZINE HCL 25 MG TABLET PO SCH (09:00)
[2025-07-04 09:04] VITALS: O2SAT 96
[2025-07-04] MEDS: AMLODIPINE 10 MG TAB PO ONE (11:42)
[2025-07-04 11:43] VITALS: BP 161/79
[2025-07-04] MEDS: HYDRALAZINE HCL 25 MG TABLET PO ONE (11:43)
--- NOTE | 2025-07-04 13:32 | SS ---
Sate of Admission: 07/04/2025 Date of Discharge: 07/04/2025 Chief Complaint: Shortness of breath. History Of Present Illness: This is a 79-year-old male patient who contacted me last weekend and at that time, he was complaining of some leg swelling and about 12-pound weight gain. The patient was prescribed furosemide 40 mg daily that he took for 2 days over the last weekend and felt better and I saw him this week on Sunday and at that time, he did not have any leg swelling. There was no paroxysmal nocturnal dyspnea, orthopnea, or any complaints of any shortness of breath. So, our decision was to take furosemide 40 mg 1 tablet daily as needed. The patient felt fine since he saw me on Sunday and did not require any use of diuretic therapy until yesterday. He came into emergency room after he talked to me and was evaluated and admitted to the hospital. The patient says that he just did not feel good for a day or so and yesterday, he was feeling more foggy as he describes, but also reported that he was having shortness of breath when he was walking around and during nighttime, he had trouble breathing every time he was lying down in the bed and describes his breathing as heavy breathing. Details were discussed with emergency room physician yesterday and evaluation was requested, which was done in the ER and after that, ER physician called me back, and decision was made to admit him to the hospital with this congestive heart failure problem. The patient received a total of 3 doses of Lasix, 2 doses yesterday and third dose this morning and he has felt much better. The patient says he does not feel foggy anymore. Last night, he was able to sleep flat in the bed without any trouble breathing and his breathing pattern is back to normal according to him and his . He ambulated well outside his room in the hallway and did not have any shortness of breath complaints either. He denies any chest pain. Allergies: NO KNOWN ALLERGIES. Medications: Allopurinol 100 mg daily, amlodipine 10 mg in the morning and 5 mg in the evening, carvedilol 6.25 mg 2 times a day, vitamin D3 5000 units daily, colchicine 0.6 mg b.i.d. p.r.n. gout, doxazosin 4 mg 2 times a day, furosemide 40 mg 1 tablet daily as needed for leg swelling, hydralazine 50 mg takes 1-1/2 tablets 2 times a day, Metamucil Fiber Gummies daily, rosuvastatin 5 mg daily at bedtime, sodium bicarbonate 650 mg 2 times a day. Review of Systems: Cardiovascular: As mentioned above. Respiratory: As mentioned above. All other systems reviewed and negative. Past Medical History: Significant for chronic kidney disease, stage 4; impaired fasting glucose; COVID-19 infection, May 12, 2021; hypertension; hyperlipidemia; gastroesophageal reflux disease; diverticulosis; kidney cancer; prostate cancer, April 2017 and was treated with radiation therapy, anemia due to chronic kidney disease and hyperkalemia. Past Surgical History: Partial resection of colon due to diverticulosis and right-sided nephrectomy in 2006 for kidney cancer. Family History: Father , had pancreatic cancer. Mother and she committed suicide. Sister had lung cancer. Social History: Negative for smoking and alcohol use. Physical Examination: Vital Signs: This morning, temperature 97.8, pulse 54, respiratory rate 18, blood pressure 163/73, oxygen saturation 96% on room air, height 6 feet 1 inch, weight 234 pounds. General: Awake, alert, oriented, not in distress. HEENT: Head atraumatic, normocephalic. Conjunctivae nonerythematous. Sclerae white. Mouth, no thrush or edema noted. Ears/Nose, no mass, lesion, discharge noted. Neck: Supple. No JVD, lymph nodes, bruit, thyromegaly noted. Lungs: Bilateral good equal air entry. Clear to auscultation. No rhonchi. No rales. Heart: Normal heart sounds, no murmur or gallop. Abdomen: Soft, bowel sounds normal. No guarding, rigidity, tenderness, mass, hepatosplenomegaly, distention, or bruit noted. Extremities: Very trace edema involving lower half of both legs. Skin: No rash, ulcer, cellulitis. Lymphatics: No lymph node enlargement in neck, supraclavicular, infraclavicular region. Neuro: No focal neurological deficit. Chest: Unremarkable. External Genitalia: Deferred. Rectal: Deferred. Laboratory Data: Yesterday, WBC 4.3, hemoglobin 8.8, platelets 170. Today, WBC 4.2, hemoglobin 8.2, platelets 167. Chemistry yesterday, sodium 136, potassium 4.7, chloride 109, bicarb 21, BUN 47, creatinine 3.29, glucose 101, estimated GFR 18. Liver function tests unremarkable. Troponin 12.7. ProBNP 1319. Today, sodium 141, potassium 4.2, chloride 110, bicarb 21, BUN 51, creatinine 3.30, glucose 94. Troponin 14.9. Chest x-ray, no acute cardiopulmonary changes. Hospital Course: After the patient was evaluated in the ER, he was admitted to the hospital with congestive heart failure problem. He received Lasix 40 mg total 3 doses, last dose was this morning and he has felt much better. All his symptoms have resolved now, and he is back to his baseline. Medically, he is stable for discharge. He was admitted to hospital as an inpatient, but he is improved more rapidly than expected, so I will change his admission status to observation, and we will go ahead and discharge him to go home as there is no need for ongoing hospitalization and we can manage this on outpatient basis. He has furosemide prescription at home, and I have instructed him to take 40 mg tablet 2 times a day. 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 I did go over all the details with the patient regarding congestive heart failure, different type of congestive heart failure including systolic and diastolic, and I suspect that he has diastolic heart failure and he will need echocardiogram, which can be done at office of [facility] [employer] [facility] and then we will need to make more adjustment on his medication as the time goes on. He was advised to avoid any strenuous activity, avoid excess amount of heat exposure, and reduce salt intake. Discharge Medications And Instructions: 1. Continue all prior home medications except following changes. 2. Furosemide 40 mg take 1 tablet by mouth 2 times a day. 3. Follow up at my office next week on , which is 07/09/2025. Final Diagnoses: 1. Chronic diastolic heart failure, with acute exacerbation. 2. Chronic kidney disease, stage 4. 3. Anemia due to chronic kidney disease. 4. Hypertension. 5. Hyperlipidemia. 6. Right kidney cancer. 7. Prostate cancer. 8. Gastroesophageal reflux disease. 9. Diverticulosis. Total time spent 75 minutes including review of last office visit record from 06/29/2025, communication with the patient prior to his presentation to emergency room, communication with the emergency room physician on 2 different occasions, which included before the patient was evaluated in the ER and after evaluation, review of emergency room visit record, and performing today's evaluation and management. ALAINA/ADARSH Voice ID: [id number] Report ID: [id number] MYKEL
[2025-07-04] MEDS ORDERED: AMLODIPINE 5 MG TAB PO SCH (21:00)
== END 2025-07-04 12:40 | disposition home health service (06) ==
LOC: ER 12:38 → ERHOLD 16:02 → INTOOBSV 16:02 → 2ND 17:57
PROVIDERS: ADMIT Internal Medicine; ATTEND Internal Medicine
DX: I50.33 Acute on chronic diastolic (congestive) heart failure (principal); R60.9 Edema, unspecified; N18.4 Chronic kidney disease, stage 4 (severe); R73.01 Impaired fasting glucose; I10 Essential (primary) hypertension; E78.5 Hyperlipidemia, unspecified; K21.9 Gastro-esophageal reflux disease without esophagitis; K57.90 Diverticulosis of intestine, part unspecified, without perforation or abscess without bleeding; D63.1 Anemia in chronic kidney disease; E87.5 Hyperkalemia; Z85.46 Personal history of malignant neoplasm of prostate; Z86.16 Personal history of COVID-19; Z85.528 Personal history of other malignant neoplasm of kidney; Z80.1 Family history of malignant neoplasm of trachea, bronchus and lung
CPT/HCPCS: 93005; 85025 ×2; 80048 ×2; 36415; 83735 ×2; 85610; 80076; 84484 ×2; 83880; 71045; 96374; 99285; J1644 ×2; J1938 ×3; G0378 ×4

== ENCOUNTER 2025-07-09 14:55 | Emergency (ER) | payer OTHER ==
[2025-07-09 15:28] LABS: Absolute Lymphocytes (CBC) 1.2 K/uL (0.7-4.9); Hematocrit 26.6 % (39.6-49.0); Hemoglobin 9.2 g/dL (13.6-17.9); MCH 34.3 pg (27.0-35.0); MCHC 34.5 g/dL (32.0-36.0); MCV 99.2 fL (80-100); MPV 6.6 fL (7.6-11.3); Nucleated RBC Absolute Count 0.0 (0-0); Nucleated Red Blood Cells % 0.0 % (0-0); RBC Red Blood Cell Count 2.69 M/uL (4.33-5.43); White Blood Count 5.20 thou/uL (4.3-10.9)
[2025-07-09 15:43] LABS: PT Prothrombin Time 13.0 SECONDS (10-13.0); PTT, Activated Partial Thromb 29.4 SECONDS (27.2-37.4); Protime INR 1.16
[2025-07-09 15:57] LABS: ALT/SGPT 24 U/L (16-61); AST/SGOT 14 U/L (15-37); Albumin 3.7 g/dL (3.4-5.0); Albumin/Globulin Ratio 0.9 (1.1-1.8); Alkaline Phosphatase 87 U/L (45-117); Anion Gap 13.1 mEq/L (5.0-15.0); BUN Blood Urea Nitrogen 71 mg/dL (7-18); Globulin 4.0 g/dL (2.3-3.5); Glucose Level 129 mg/dL (74-106); Magnesium 2.4 mg/dL (1.6-2.4); Potassium 4.1 mEq/L (3.5-5.1); Troponin High Sensitivity 11.6 pg/mL (<58.9)
[2025-07-09 15:58] LABS: Bilirubin Indirect, Calculated 0.0 mg/dL (0.2-0.8)
--- NOTE | 2025-07-09 16:14 | RAD REPORT ---
EXAM: CT brain without contrast HISTORY: left facial twitching resolved COMPARISON: None TECHNIQUE: Multiple contiguous axial images were obtained and a CT of the brain without contrast. Sag ittal and coronal reformats were performed. One or more of the following dose reduction techniques were used: Automated exposure control, adjust ment of the mA and/or kV according to patient size, and/or iterative reconstruction. FINDINGS: No evidence of hydrocephalus, intracranial hemorrhage, or extra-axial fluid collection. Mild brain atrophy with mild periventricular and deep white matter chronic microvascular ischemic ch anges present. No evidence of midline shift or areas of brain edema. The calvarium is intact. The visualized paranasal sinuses and mastoid air cells are essentially clear . IMPRESSION: No evidence of acute intracranial abnormality.
--- NOTE | 2025-07-09 16:36 | EDPHYS ---
Physician Documentation [facility] Name: Juan Carter Age: 79 yrs Sex: Male : 1945 Arrival Date: 07/09/2025 Time: 14:55 Bed 2 Private MD: ED Physician Ale Mabry HPI: 07/09 15:12 This 79 yrs old Male presents to ER via Unassigned with complaints of S/S of Possible sp3 Stroke. 15:12 79-year-old male with history of CHF, hypertension, prior prostate cancer, prior kidney sp3 cancer with left nephrectomy, presents with left-sided lip/facial twitching over the last several hours. He called his PCP Dr. Bowling who sent him into the ED for evaluation. Patient was just discharged from the hospital for new onset CHF and has been being diuresed. No repeat potassium has been checked since discharge. Patient has no other signs or symptoms of stroke. ROS otherwise negative.. Historical: - Allergies: 15:16 SHELLFISH; ss - PMHx: 15:16 Diverticulitis; Hypertension; kidney cancer (Unknown); Prostate Cancer; Congestive ss heart failure; - PSHx: 15:16 Nephrectomy; ss - Immunization history:: Adult Immunizations up to date. - Infectious Disease History:: Denies. - Social history:: Smoking status: Patient denies any tobacco usage or history of. ROS: 15:14 Constitutional: Negative for fever, chills, and weight loss, Eyes: Negative for injury, sp3 pain, redness, and discharge, Neck: Negative for injury, pain, and swelling, Cardiovascular: Negative for chest pain, palpitations, and edema, Respiratory: Negative for shortness of breath, cough, wheezing, and pleuritic chest pain, Abdomen/GI: Negative for abdominal pain, nausea, vomiting, diarrhea, and constipation, Back: Negative for injury and pain, MS/Extremity: Negative for injury and deformity, Skin: Negative for injury, rash, and discoloration, Psych: Negative for depression, anxiety, suicide ideation, homicidal ideation, and hallucinations, Allergy/Immunology: Negative for hives, rash, and allergies, Endocrine: Negative for neck swelling, polydipsia, polyuria, polyphagia, and marked weight changes, Hematologic/Lymphatic: Negative for swollen nodes, abnormal bleeding, and unusual bruising, 15:14 All other systems are negative, Exam: 15:14 Constitutional: This is a well developed, well nourished patient who is awake, alert, sp3 and in no acute distress. Head/Face: Normocephalic, atraumatic. Eyes: Pupils equal round and reactive to light, extra-ocular motions intact. Lids and lashes normal. Conjunctiva and sclera are non-icteric and not injected. Cornea within normal limits. Periorbital areas with no swelling, redness, or edema. ENT: Nares patent. No nasal discharge, no septal abnormalities noted. External auditory canals are clear. Oropharynx with no redness, swelling, or masses, exudates, or evidence of obstruction, uvula midline. Mucous membranes moist. Neck: Trachea midline, no thyromegaly or masses palpated, and no cervical lymphadenopathy. Supple, full range of motion without nuchal rigidity, or vertebral point tenderness. No Meningismus. Chest/axilla: Normal chest wall appearance and motion. Nontender with no deformity. No lesions are appreciated. Cardiovascular: Regular rate and rhythm with a normal S1 and S2. No gallops, murmurs, or rubs. Normal PMI, no JVD. No pulse deficits. Respiratory: Lungs have equal breath sounds bilaterally, clear to auscultation and percussion. No rales, rhonchi or wheezes noted. No increased work of breathing, no retractions or nasal flaring. Abdomen/GI: Soft, non-tender, with normal bowel sounds. No distension or tympany. No guarding or rebound. No evidence of tenderness throughout. Back: No spinal tenderness. No costovertebral tenderness. Full range of motion. Skin: Warm, dry with normal turgor. Normal color with no rashes, no lesions, and no evidence of cellulitis. MS/ Extremity: Pulses equal, no cyanosis. Neurovascular intact. Full, normal range of motion. Neuro: Awake and alert, GCS 15, oriented to person, place, time, and situation. Cranial nerves II-XII grossly intact. Motor strength 5/5 in all extremities. Sensory grossly intact. Cerebellar exam normal. Normal gait. Psych: Awake, alert, with orientation to person, place and time. Behavior, mood, and affect are within normal limits. 16:27 ECG was reviewed by the Attending Physician. EKG demonstrates sinus bradycardia 57 bpm sp3 with first-degree AV block with CA interval 224, QTc 408 normal QRS normal axis nonspecific diffuse ST/T changes without evidence of acute ischemia. Vital Signs: 15:03 BP 159 / 65; Pulse 60; Resp 16; Temp 98.2(TE); Pulse Ox 99% ; Weight 107 kg; Pain 0/10; ss 15:15 BP 149 / 64; Pulse 58; Resp 17; Pulse Ox 99% ; db 16:00 BP 139 / 59; Pulse 60; Resp 19; Pulse Ox 99% on R/A; db 16:45 BP 153 / 59; Pulse 60; Resp 20; Pulse Ox 98% on R/A; db 15:03 Pain Scale: Adult ss NIH Stroke Scale Scores: 15:10 NIHSS Score: 0 bp Sorento Coma Score: 16:36 Eye Response: spontaneous(4). Verbal Response: oriented(5). Motor Response: obeys db commands(6). Total: 15. MDM: 15:04 Medical Screening Exam initiated sp3 15:14 Data reviewed: vital signs, nurses notes, old medical records, lab test result(s), EKG, sp3 radiologic studies. ED course: 79-year-old male presents with left-sided lip and facial twitching for several hours as well as earlier in the morning. Patient's NIH stroke scale is currently zero and patient is having no further symptoms currently. Differential diagnosis includes TIA/CVA spectrum, hypokalemia, other facial nerve pathology, electrolyte disturbance, among others. Will obtain CT scan of the head as well as CT angiogram of brain and neck coupled with routine labs. Will discuss with Dr. Bowling however patient can likely be discharged if workup is negative.. 16:34 ED course: Patient negative on all studies. Creatinine 4.5. Patient was to go home he sp3 has no symptoms whatsoever. We will safely discharge him home at this time. Discussed with PCP Dr. Bowling and he agrees on the plan. He will follow-up in his office.. 07/09 15:12 Order name: Basic Metabolic Panel; Complete Time: 16:05 sp3 07/09 15:12 Order name: CBC with Diff; Complete Time: 16:05 sp3 07/09 15:12 Order name: Hepatic Function; Complete Time: 16:05 sp3 07/09 15:12 Order name: High Sensitivity Troponin; Complete Time: 16:05 sp3 10/30 15:12 Order name: Magnesium; Complete Time: 16:05 sp3 07/09 15:12 Order name: Protime (+inr); Complete Time: 16:05 sp3 07/09 15:12 Order name: Ptt, Activated; Complete Time: 16:05 sp3 07/09 15:20 Order name: CT Head Brain wo Cont; Complete Time: 16:16 sp3 07/09 15:12 Order name: Cardiac monitoring; Complete Time: 16:32 sp3 07/09 15:12 Order name: EKG - Nurse/Tech; Complete Time: 16:32 sp3 07/09 15:12 Order name: IV Saline Lock; Complete Time: 16:32 sp3 07/09 15:12 Order name: Labs collected and sent; Complete Time: 16:32 sp3 07/09 15:12 Order name: NPO; Complete Time: 16:32 sp3 07/09 15:12 Order name: O2 Per Protocol; Complete Time: 16:32 sp3 07/09 15:12 Order name: O2 Sat Monitoring; Complete Time: 16:32 sp3 07/09 15:12 Order name: Stroke Swallow Screen; Complete Time: 16:36 sp3 Administered Medications: No medications were administered Disposition Summary: 07/09/25 16:36 Discharge Ordered Notes: Location: Home sp3 Condition: Stable sp3 Diagnosis - Facial tingling and possible droop, resolved sp3 Followup: sp3 - With: Parish Bowling MD - When: Upon discharge from the Emergency Department - Reason: Recheck today's complaints Discharge Instructions: - Discharge Summary Sheet sp3 - Paresthesia sp3 Forms: - Medication Reconciliation Form sp3 - Antibiotic Education sp3 - Prescription Opioid Use sp3 - Patient Portal Instructions sp3 - Leadership Thank You Letter sp3 NIH Stroke Scale - NIH Stroke Score Date: 07/09/2025 Time: 15:10 Total Score = 0 1a. Level of Consciousness (LOC) - 0(Alert) 1b. Level of Consciousness (LOC) (Month \T\ Age) - 0(Both) 1c. LOC Commands (Open \T\ Closes Eyes/Manager Entry) - 0(Both) 2. Best Gaze (Lateral Gaze Paresis) - 0(Normal) 3. Visual Field Loss - 0(No visual loss) 4. Facial Palsy - 0(Normal) 5a. Left Arm: Motor (10-second hold) - 0(No drift) 5b. Right Arm: Motor (10-second hold) - 0(No drift) 6a. Left Leg: Motor (5-second hold - always test supine) - 0(No drift) 6b. Right Leg: Motor (5-second hold - always test supine) - 0(No drift) 7. Limb Ataxia (finger/nose \T\ heel/reardon - test with eyes open) - 0(Absent) 8. Sensory Loss (pinprick arms/legs/face) - 0(Normal) 9. Best Language: Aphasia (description/naming/reading) - 0(No aphasia) 10. Dysarthria (speech clarity - read or repeat words) - 0(Normal) 11. Extinction and Inattention (visual/tactile/auditory/spatial/personal) - 0(No abnormality) Initials: bp Signatures: Dispatcher [employer] EDMS Magalie Juan RN RN Aleksandr Sosa RN RN bp Patel, Setul, MD MD sp3 Corrections: (The following items were deleted from the chart) 15:12 15:12 BASIC METABOLIC PANEL+C.LAB.BRZ ordered. EDMS EDMS 15:12 15:12 CBC+H.LAB.BRZ ordered. EDMS EDMS 15:12 15:12 HEPATIC FUNCTION+C.LAB.BRZ ordered. EDMS EDMS 15:12 15:12 Troponin High Sensitivity+C.LAB.BRZ ordered. EDMS EDMS 15:12 15:12 MAGNESIUM+C.LAB.BRZ ordered. EDMS EDMS 15:12 15:12 PROTIME (+INR)+COAG.LAB.BRZ ordered. EDMS EDMS 15:12 15:12 PTT, ACTIVATED+COAG.LAB.BRZ ordered. EDMS EDMS 15:12 15:12 Head Angio+CT.RAD.BRZ ordered. EDMS EDMS 15:12 15:12 Neck Angio+CT.RAD.BRZ ordered. EDMS EDMS 15:12 15:12 CT-STROKE BRAIN W/O CONTRAST+CT.RAD.BRZ ordered. EDMS EDMS 15:20 15:20 Head Brain Wo Cont+CT.RAD.BRZ ordered. EDMS EDMS
--- NOTE | 2025-07-09 16:36 | ER ---
Nurse's Notes [facility] Name: Juan Carter Age: 79 yrs Sex: Male : 1945 Arrival Date: 07/09/2025 Time: 14:55 Bed 2 Private MD: Diagnosis: Facial tingling and possible droop, resolved Presentation: 07/09 15:03 Chief complaint: Patient states: "I've been having what I call a seizure on the L side ss of my lip. It's happened about 15 times from [place] to here. Dr. Bowling told me I should come here to make sure I'm not having a stroke." Pt reports he has felt this sensation since about 0900 this morning. NIHSS 0. Coronavirus screen: Client denies travel out of the [place] in the last 14 days. Ebola Screen: Patient denies exposure to infectious person. Patient denies travel to an Ebola-affected area in the 21 days before illness onset. No acute neurological deficit is noted. Pre-hospital glucose is not applicable to this patient. Initial Sepsis Screen: Does the patient meet any 2 criteria? No. Patient's initial sepsis screen is negative. Does the patient have a suspected source of infection? No. Patient's initial sepsis screen is negative. Risk Assessment: Do you want to hurt yourself or someone else? Patient reports no desire to harm self or others. Onset of symptoms was July 09, 2025 at 09:00. 15:03 Method Of Arrival: Ambulatory ss 15:03 Acuity: MARINA 3 ss Triage Assessment: 15:10 The onset of the patients symptoms was July 09, 2025 at 09:00. General: Appears in bp no apparent distress. Behavior is calm, cooperative, appropriate for age. Pain: Denies pain. EENT: No deficits noted. Neuro: Reports LEFT LIP SPASM. Cardiovascular: Rhythm is sinus rhythm. Respiratory: No deficits noted. GI: No signs and/or symptoms were reported involving the gastrointestinal system. : No signs and/or symptoms were reported regarding the genitourinary system. Derm: No deficits noted. Musculoskeletal: No deficits noted. Stroke Activation: Symptom onset > 6 hours Physician: ED Attending; Name: ; Notified At: ; Arrived At: Physician: Mid-Level Provider; Name: ; Notified At: ; Arrived At: Physician: [not used]; Name: ; Notified At: ; Arrived At: Physician: [not used]; Name: ; Notified At: ; Arrived At: Physician: [not used]; Name: ; Notified At: ; Arrived At: Historical: - Allergies: 15:16 SHELLFISH; ss - PMHx: 15:16 Diverticulitis; Hypertension; kidney cancer (Unknown); Prostate Cancer; Congestive ss heart failure; - PSHx: 15:16 Nephrectomy; ss - Immunization history:: Adult Immunizations up to date. - Infectious Disease History:: Denies. - Social history:: Smoking status: Patient denies any tobacco usage or history of. Screenin:10 [facility] ED Fall Risk Assessment (Adult) History of falling in the last 3 months, bp including since admission No falls in past 3 months (0 pts) Confusion or Disorientation No (0 pts) Intoxicated or Sedated No (0 pts) Impaired Gait No (0 pts) Mobility Assist Device Used No (0 pt) Altered Elimination No (0 pt) Score/Fall Risk Level 0 - 2 = Low Risk Oriented to surroundings. Abuse screen: Denies threats or abuse. Denies injuries from another. Nutritional screening: No deficits noted. Tuberculosis screening: No symptoms or risk factors identified. Assessment: 15:10 VAN Scoring: Arm Drift: Patients demonstrates NO arm weakness. Patient is VAN Negative. bp Edwards Swallow Protocol Exclusion Criteria: Unable to remain alert for testing: No NPO for medical/surgical reason by provider order No No thin liquids due to preexisting dysphagia/baseline modified diet thickened liquids No Exclusion Criteria Result: Proceed Brief Cognitive Screen What is your name? Normal, Where are you right now? Normal, What year is it? Normal. Oral Mechanism Examination Facial Symmetry: Normal, Motion: Normal, Lip Closure: Normal, Oral Mechanism Result: Normal. 3 oz Water Swallow Challenge: Pt able to drink all water without stopping, coughing, choking or throat clearing: Yes Result: PASS Notified: Ale Mabry MD. TNKase (Tenecteplase) Screening: Contraindications: Rapidly improving condition or minor deficit: Yes. 16:36 Reassessment: Patient appears in no apparent distress at this time. Patient and/or db family updated on plan of care and expected duration. Pain level reassessed. Patient is alert, oriented x 3, equal unlabored respirations, skin warm/dry/pink. General: Appears in no apparent distress. comfortable, Behavior is calm, cooperative. Neuro: Level of Consciousness is awake, alert, obeys commands, Oriented to person, place, time, situation. Vital Signs: 15:03 BP 159 / 65; Pulse 60; Resp 16; Temp 98.2(TE); Pulse Ox 99% ; Weight 107 kg; Pain 0/10; ss 15:15 BP 149 / 64; Pulse 58; Resp 17; Pulse Ox 99% ; db 16:00 BP 139 / 59; Pulse 60; Resp 19; Pulse Ox 99% on R/A; db 16:45 BP 153 / 59; Pulse 60; Resp 20; Pulse Ox 98% on R/A; db 15:03 Pain Scale: Adult ss Anusha Coma Score: 16:36 Eye Response: spontaneous(4). Verbal Response: oriented(5). Motor Response: obeys db commands(6). Total: 15. NIH Stroke Scale Scores: 15:10 NIHSS Score: 0 bp ED Course: 14:56 Patient arrived in ED. mr 15:00 Ale Mabry MD is Attending Physician. sp3 15:06 Aleksandr Bolton, SEGUN is Primary Nurse. bp 15:10 Patient has correct armband on for positive identification. bp 15:10 Initial lab(s) drawn, by me, sent to lab. Inserted saline lock: 20 gauge in right bp forearm, using aseptic technique. Blood collected. Flushed with 10 mL NS. 15:16 Triage completed. ss 15:16 Arm band placed on right wrist. ss 15:32 CT Head Brain wo Cont In Process Unspecified. EDMS 16:36 Parish Bowling MD is Referral Physician. sp3 16:56 No provider procedures requiring assistance completed. IV discontinued, intact, bp bleeding controlled, No redness/swelling at site. Pressure dressing applied. Administered Medications: No medications were administered Medication: 15:10 VIS not applicable for this client. bp Outcome: 16:36 Discharge ordered by . sp3 16:56 Discharged to home ambulatory, with family, bp 16:56 Condition: stable 16:56 Discharge instructions given to patient, family, Instructed on discharge instructions, follow up and referral plans. Demonstrated understanding of instructions, follow-up care, 16:57 Patient left the ED. bp NIH Stroke Scale - NIH Stroke Score Date: 07/09/2025 Time: 15:10 Total Score = 0 1a. Level of Consciousness (LOC) - 0(Alert) 1b. Level of Consciousness (LOC) (Month \\T\\ Age) - 0(Both) 1c. LOC Commands (Open \\T\\ Closes Eyes/[employer]) - 0(Both) 2. Best Gaze (Lateral Gaze Paresis) - 0(Normal) 3. Visual Field Loss - 0(No visual loss) 4. Facial Palsy - 0(Normal) 5a. Left Arm: Motor (10-second hold) - 0(No drift) 5b. Right Arm: Motor (10-second hold) - 0(No drift) 6a. Left Leg: Motor (5-second hold - always test supine) - 0(No drift) 6b. Right Leg: Motor (5-second hold - always test supine) - 0(No drift) 7. Limb Ataxia (finger/nose \\T\\ heel/reardon - test with eyes open) - 0(Absent) 8. Sensory Loss (pinprick arms/legs/face) - 0(Normal) 9. Best Language: Aphasia (description/naming/reading) - 0(No aphasia) 10. Dysarthria (speech clarity - read or repeat words) - 0(Normal) 11. Extinction and Inattention (visual/tactile/auditory/spatial/personal) - 0(No abnormality) Initials: bp Signatures: Dispatcher [employer] [facility] NajeraJennifer, Reg Reg mr JuanMagalie, RN RN ss Aleksandr oBlton, RN RN bp Ale Mabry MD MD sp3 Jessica Gamino RN RN db
[2025-07-09 17:39] VITALS: TEMP 98.2
[2025-07-09 17:50] VITALS: BP 153/59; O2SAT 98
== END 2025-07-09 16:57 | disposition home or self-care (01) ==
LOC: ER 14:55
DX: R20.2 Paresthesia of skin (principal); R25.3 Fasciculation; I50.9 Heart failure, unspecified; I10 Essential (primary) hypertension
CPT/HCPCS: 36415; 70450; 80048; 80076; 83735; 84484; 85025; 85610; 85730; 93005; 99284